=== PATIENT | female | born 1980 | race Two or more races ===

== ENCOUNTER 2024-01-15 05:22 | Day surgery (SDC) | payer OTHER ==
[2024-01-14 11:48] LABS: HEMATOCRIT 38.5 % (36.0-45.00); MEAN CELL VOLUME 81.8 fL (80.00-100.00); MEAN CORPUSCULAR HEMOGLOBIN 27.7 pg (27.00-32.0); MEAN CORPUSCULAR HGB CONC 33.8 g/dl (32.0-36.0); PLATELET COUNT 298 K/uL (150-450); RED BLOOD COUNT 4.71 M/uL (4.00-6.00)
[2024-01-14 12:12] LABS: INR 0.99; PARTIAL THROMBOPLASTIN TIME 25.6 SECONDS (22.0-34.0); PROTHROMBIN TIME 10.4 SECONDS (9.0-11.5)
[2024-01-14 12:23] LABS: ALBUMIN 3.5 gm/dL (3.4-5.0); BILIRUBIN TOTAL 0.24 mg/dL (0.3-1.2); CALCIUM 9.9 mg/dL (8.5-10.1); CREATININE SERUM 0.64 mg/dL (0.55-1.02); GFR 101.76; GLOBULINA 3.6 G/DL (2.4-3.5); POTASSIUM 4.09 mEq/L (3.5-5.1); TOTAL PROTEIN 7.1 gm/dL (6.4-8.2)
[2024-01-15] MEDS ORDERED: POVIDONE-IODINE 118 ML BOTT TOP ONE (06:48)
== END 2024-01-15 12:50 | disposition home or self-care (01) ==
LOC: CIR.AMB 05:22
PROVIDERS: ATTEND Obstetrics & Gynecology Maternal & Fetal Medicine
DX: O34.32 Maternal care for cervical incompetence, second trimester (principal); Z3A.14 14 weeks gestation of pregnancy; I10 Essential (primary) hypertension

== ENCOUNTER 2024-04-03 12:23 | Outpatient (CLI) | payer OTHER | END 2024-04-03 13:26 | disposition home or self-care (01) | LOC: NST 12:23 | PROVIDERS: ATTEND Obstetrics & Gynecology | DX: Z34.82 Encounter for supervision of other normal pregnancy, second trimester (principal) ==

== ENCOUNTER 2024-04-06 13:02 | Inpatient (IN) | payer OTHER ==
[~2024-04-06] VITALS: Ht 152.4 cm; Wt 80.7 kg
[2024-04-06] MEDS ORDERED: RINGERS SOLUTION,LACTATED 1,000 ML IV SCH (13:30)
[2024-04-06] MEDS ORDERED: BETAMETHASONE ACETATE,SOD PHOS 30 MG/5 ML ML IM SCH (13:30)
[2024-04-06] MEDS ORDERED: MAGNESIUM SULFATE IN WATER 500 ML IV SCH (13:30)
[2024-04-06] MEDS ORDERED: MAGNESIUM SULFATE IN WATER 50 ML IV ONE (13:30)
[2024-04-06] MEDS ORDERED: BETAMETHASONE ACETATE,SOD PHOS 30 MG/5 ML ML ONE (13:35)
[2024-04-06] MEDS ORDERED: MAGNESIUM SULFATE IN WATER 0.04 GM/ML IV.SOLN IV ONE (13:35)
[2024-04-06 13:46] VITALS: BP 110/74
[2024-04-06 14:58] LABS: HEMATOCRIT 33.7 % (36.0-45.00); HEMOGLOBIN 11.3 g/dL (12.0-15.00); MEAN CELL VOLUME 82.4 fL (80.00-100.00); MEAN CORPUSCULAR HEMOGLOBIN 27.6 pg (27.00-32.0); MEAN CORPUSCULAR HGB CONC 33.5 g/dl (32.0-36.0); PLATELET COUNT 297 K/uL (150-450); RED BLOOD COUNT 4.09 M/uL (4.00-6.00); RED CELL DISTRIBUTION WIDTH 14.2 % (11.5-14.5)
[2024-04-06 15:07] LABS: PROTHROMBIN TIME 10.9 SECONDS (9.0-11.5)
[2024-04-06 15:26] LABS: ALBUMIN 2.9 gm/dL (3.4-5.0); BILIRUBIN TOTAL 0.25 mg/dL (0.3-1.2); CALCIUM 9.3 mg/dL (8.5-10.1); CREATININE SERUM 0.64 mg/dL (0.55-1.02); GFR 101.76; GLOBULINA 3.5 G/DL (2.4-3.5); POTASSIUM 3.92 mEq/L (3.5-5.1); TOTAL PROTEIN 6.4 gm/dL (6.4-8.2)
[2024-04-06 16:19] VITALS: BP 128/80
[2024-04-06 19:44] VITALS: BP 123/74
[2024-04-06 23:39] VITALS: BP 119/73
[2024-04-07 03:10] VITALS: BP 117/70
[2024-04-07 06:33] VITALS: BP 126/71; O2SAT 97
[2024-04-07] MEDS ORDERED: AZITHROMYCIN 500 MG TABLET PO SCH (09:00)
[2024-04-07 12:21] VITALS: BP 121/73; O2SAT 97
[2024-04-07] MEDS ORDERED: BETAMETHASONE ACETATE,SOD PHOS 30 MG/5 ML ML ONE (14:29)
[2024-04-07 15:17] VITALS: BP 117/71
[2024-04-07 19:00] VITALS: BP 119/74
[2024-04-07 23:58] VITALS: BP 126/74
[2024-04-08 03:35] VITALS: BP 122/73
[2024-04-08 06:54] VITALS: BP 126/76; O2SAT 97
[2024-04-08] MEDS ORDERED: NIFEDIPINE 30 MG TAB.SA.OSM PO SCH (09:00)
[2024-04-08 11:38] VITALS: BP 118/72; O2SAT 96
[2024-04-08 14:18] VITALS: BP 121/57
[2024-04-08 17:59] VITALS: BP 109/69
[2024-04-09 02:16] VITALS: BP 114/70
[2024-04-09 09:00] VITALS: BP 118/74
[2024-04-09 16:00] VITALS: BP 117/71
[2024-04-10] VITALS: BP 104/64
[2024-04-10 09:00] VITALS: BP 106/67
[2024-04-10 17:30] VITALS: BP 135/73
[2024-04-10 23:52] VITALS: BP 106/69
[2024-04-11 09:15] VITALS: BP 129/80
[2024-04-11 16:00] VITALS: BP 131/80
[2024-04-12 00:19] VITALS: BP 110/72
[2024-04-12 08:05] VITALS: BP 119/76
[2024-04-12 15:57] VITALS: BP 123/80
[2024-04-12 23:31] VITALS: BP 110/71
[2024-04-13 08:11] VITALS: BP 120/72
[2024-04-13 16:00] VITALS: BP 122/79
[2024-04-13 23:43] VITALS: BP 109/73
[2024-04-14 08:05] VITALS: BP 116/76
[2024-04-14 15:55] VITALS: BP 125/79
[2024-04-15 01:25] VITALS: BP 112/76
[2024-04-15 10:11] VITALS: BP 127/81; O2SAT 98
[2024-04-15 16:15] VITALS: BP 123/80
[2024-04-16 01:14] VITALS: BP 116/77
[2024-04-16 08:00] VITALS: BP 117/79
[2024-04-16] MEDS ORDERED: POLYETHYLENE GLYCOL 3350 17 GM BLIST.PACK PO SCH (09:00)
[2024-04-16] MEDS ORDERED: DOCUSATE SODIUM 100MG CAP PO SCH (09:00)
[2024-04-16] MEDS ORDERED: ENOXAPARIN SODIUM 40 MG/0.4 ML SYRINGE SUBCUTANEO NR (11:43)
[2024-04-16 16:00] VITALS: BP 129/84
[2024-04-17 01:44] VITALS: BP 116/75
[2024-04-17 08:00] VITALS: BP 124/80
[2024-04-17] MEDS ORDERED: ENOXAPARIN SODIUM 40 MG/0.4 ML SYRINGE SUBCUTANEO SCH (09:00)
[2024-04-17 09:50] LABS: HEMATOCRIT 32.7 % (36.0-45.00); MEAN CELL VOLUME 81.2 fL (80.00-100.00); MEAN CORPUSCULAR HEMOGLOBIN 27.3 pg (27.00-32.0); MEAN CORPUSCULAR HGB CONC 33.6 g/dl (32.0-36.0); PLATELET COUNT 296 K/uL (150-450); RED BLOOD COUNT 4.03 M/uL (4.00-6.00); RED CELL DISTRIBUTION WIDTH 14.2 % (11.5-14.5)
[2024-04-17 16:20] VITALS: BP 115/77
[2024-04-18 00:38] VITALS: BP 119/78
[2024-04-18 08:00] VITALS: BP 125/78
[2024-04-18] MEDS ORDERED: MINERAL OIL 30 ML BLIST.PACK PO NR ×2 (10:39→19:15)
[2024-04-18] MEDS ORDERED: MAGNESIUM HYDROXIDE 30 ML BLIST.PACK PO NR ×2 (10:39→19:15)
[2024-04-18 10:47] VITALS: BP 111/76
[2024-04-18 15:05] VITALS: BP 116/79
[2024-04-18 19:24] VITALS: BP 132/87
[2024-04-19] VITALS: BP 127/83
[2024-04-19 08:00] VITALS: BP 129/81
[2024-04-19 15:01] VITALS: BP 122/79
[2024-04-19 20:00] VITALS: BP 137/86
[2024-04-20] VITALS: BP 116/72
[2024-04-20 08:24] VITALS: BP 126/81
[2024-04-20] MEDS ORDERED: POLYETHYLENE GLYCOL 3350 17 GM BLIST.PACK PO SCH (09:00)
[2024-04-20 16:28] VITALS: BP 117/79
[2024-04-21 00:36] VITALS: BP 116/76
[2024-04-21 08:15] VITALS: BP 120/80
[2024-04-21 16:15] VITALS: BP 108/72
[2024-04-22 00:40] VITALS: BP 115/76
[2024-04-22 08:39] VITALS: BP 119/79
[2024-04-22 16:00] VITALS: BP 134/80
[2024-04-22] MEDS ORDERED: DOCUSATE CALCIUM 240 MG CAPSULE PO SCH (17:00)
[2024-04-23 00:29] VITALS: BP 112/72
[2024-04-23 08:00] VITALS: BP 129/87
[2024-04-23 18:00] VITALS: BP 136/85
[2024-04-24 01:14] VITALS: BP 113/73
[2024-04-24 07:54] VITALS: BP 114/75
[2024-04-24 17:14] VITALS: BP 112/72
[2024-04-24 17:15] VITALS: BP 127/85
[2024-04-25] VITALS: BP 124/80
[2024-04-25 08:19] VITALS: BP 124/83
[2024-04-25 16:00] VITALS: BP 123/83
[2024-04-26 01:21] VITALS: BP 110/70
[2024-04-26 09:00] VITALS: BP 133/86
[2024-04-26 14:00] VITALS: BP 120/82
[2024-04-26 16:00] VITALS: BP 117/81
[2024-04-27 00:49] VITALS: BP 112/73
[2024-04-27 08:07] VITALS: BP 120/84
[2024-04-27 17:36] VITALS: BP 126/87
[2024-04-28] VITALS: BP 129/82
[2024-04-28 08:47] VITALS: BP 127/85
[2024-04-28 16:00] VITALS: BP 120/68
[2024-04-29 01:58] VITALS: BP 118/82
[2024-04-29 08:58] VITALS: BP 122/84
[2024-04-29 16:00] VITALS: BP 130/80
[2024-04-30 02:42] VITALS: BP 113/74
[2024-04-30 09:01] VITALS: BP 127/76
[2024-04-30 17:08] VITALS: BP 127/80
[2024-05-01 00:21] VITALS: BP 112/70
[2024-05-01] MEDS ORDERED: DIPHTH,PERTUSS(ACELL),TET VAC 0.5 ML VIAL IM NR (09:00)
[2024-05-01 10:40] VITALS: BP 139/83
[2024-05-01 16:00] VITALS: BP 116/74
[2024-05-02] VITALS: BP 107/71
[2024-05-02 08:16] VITALS: BP 116/75
[2024-05-02 15:48] VITALS: BP 119/78
[2024-05-02] MEDS ORDERED: NIFEDIPINE 60 MG TAB.SA.OSM PO SCH (21:00)
[2024-05-03] VITALS: BP 116/76
[2024-05-03 09:24] VITALS: BP 128/83
[2024-05-03 15:53] VITALS: BP 116/76
[2024-05-04 01:00] VITALS: BP 117/76
[2024-05-04 10:09] VITALS: BP 138/80
[2024-05-04 16:00] VITALS: BP 113/68
[2024-05-05] VITALS: BP 109/71
[2024-05-05 07:45] VITALS: BP 119/81
[2024-05-05 18:18] VITALS: BP 115/78
[2024-05-06 00:46] VITALS: BP 131/80
[2024-05-06 08:48] VITALS: BP 139/89
[2024-05-06 16:08] VITALS: BP 118/79
[2024-05-07 02:07] VITALS: BP 123/79
[2024-05-07 08:00] VITALS: BP 118/79
== END 2024-05-07 13:23 | disposition home or self-care (01) | DRG 831 ==
LOC: LDR 13:02 → OB/GYN 13:02
PROVIDERS: Obstetrics & Gynecology Gynecology; ADMIT Obstetrics & Gynecology; ATTEND Obstetrics & Gynecology
PROC: 4A1HXCZ Monitoring of Products of Conception, Cardiac Rate, External Approach (ICD-10-PCS; principal; 2024-04-06)
PROC: BY4CZZZ Ultrasonography of Second Trimester, Single Fetus (ICD-10-PCS; 2024-04-16)
PROC: BU4CZZZ Ultrasonography of Uterus and Ovaries (ICD-10-PCS; 2024-04-16)
PROC: BY4CZZZ Ultrasonography of Second Trimester, Single Fetus (ICD-10-PCS; 2024-04-23)
PROC: BY47ZZZ Ultrasonography of Fetal Umbilical Cord (ICD-10-PCS; 2024-04-23)
PROC: BY4FZZZ Ultrasonography of Third Trimester, Single Fetus (ICD-10-PCS; 2024-04-30)
PROC: BU4CZZZ Ultrasonography of Uterus and Ovaries (ICD-10-PCS; 2024-04-30)
PROC: BY47ZZZ Ultrasonography of Fetal Umbilical Cord (ICD-10-PCS; 2024-04-30)
PROC: BY47ZZZ Ultrasonography of Fetal Umbilical Cord (ICD-10-PCS; 2024-05-07)
PROC: BY4FZZZ Ultrasonography of Third Trimester, Single Fetus (ICD-10-PCS; 2024-05-07)
DX: O34.32 Maternal care for cervical incompetence, second trimester (principal); O60.02 Preterm labor without delivery, second trimester; O60.03 Preterm labor without delivery, third trimester; O36.8120 Decreased fetal movements, second trimester, not applicable or unspecified; O26.842 Uterine size-date discrepancy, second trimester; O36.5920 Maternal care for other known or suspected poor fetal growth, second trimester, not applicable or unspecified; Z3A.24 24 weeks gestation of pregnancy; Z20.822 Contact with and (suspected) exposure to COVID-19; O26.843 Uterine size-date discrepancy, third trimester; Z3A.28 28 weeks gestation of pregnancy; O36.8130 Decreased fetal movements, third trimester, not applicable or unspecified

== ENCOUNTER 2024-05-20 09:39 | Outpatient (CLI) | payer OTHER | END 2024-05-20 11:19 | disposition home or self-care (01) | LOC: NST 09:39 | PROVIDERS: ATTEND Obstetrics & Gynecology Maternal & Fetal Medicine | DX: Z34.83 Encounter for supervision of other normal pregnancy, third trimester (principal) ==

== ENCOUNTER → 2024-06-03 | Outpatient (CLI) | payer OTHER | END | disposition home or self-care (01) | LOC: NST 14:54 | PROVIDERS: ATTEND Obstetrics & Gynecology | DX: Z34.83 Encounter for supervision of other normal pregnancy, third trimester (principal) ==

== ENCOUNTER 2024-06-10 14:45 | Inpatient (IN) | payer OTHER ==
[~2024-06-10] VITALS: Ht 152.4 cm; Wt 83.0 kg
[2024-06-10 15:10] VITALS: BP 143/87
[2024-06-10 17:28] LABS: HEMATOCRIT 33.6 % (36.0-45.00); HEMOGLOBIN 11.3 g/dL (12.0-15.00); MEAN CELL VOLUME 78.7 fL (80.00-100.00); MEAN CORPUSCULAR HEMOGLOBIN 26.6 pg (27.00-32.0); MEAN CORPUSCULAR HGB CONC 33.7 g/dl (32.0-36.0); PLATELET COUNT 302 K/uL (150-450); RED BLOOD COUNT 4.27 M/uL (4.00-6.00); RED CELL DISTRIBUTION WIDTH 14.8 % (11.5-14.5)
[2024-06-10 17:30] LABS: PH,URINE 5.5 (5.0-8.0); URINE APPEARANCE Cloudy; URINE BILIRRUBIN Negative (NEGATIVE); URINE BLOOD Negative; URINE COLOR Yellow; URINE GLUCOSE Negative (NEGATIVE); URINE KETONE 15 (NEGATIVE); URINE LEUKOCYTE Moderate; URINE NITRATE Negative; URINE PROTEIN 30 (NEGATIVE)
[2024-06-10 17:33] LABS: URINE BACTERIA 2742.9 uL (0.0-1933); URINE CAST 1.98 uL (0.0-1.40); URINE EPITHELIAL CELLS 98.9 uL (0.0-38.8); URINE RBC 2.9 uL (0.0-20.8); URINE WBC 191.8 uL (0.0-23.2)
[2024-06-10] MEDS ORDERED: LABETALOL HCL 200 MG TABLET PO SCH (17:42)
[2024-06-10] MEDS ORDERED: MAGNESIUM SULFATE IN WATER 500 ML IV SCH (17:45)
[2024-06-10] MEDS ORDERED: RINGERS SOLUTION,LACTATED 1,000 ML IV SCH (17:45)
[2024-06-10] MEDS ORDERED: BETAMETHASONE ACETATE,SOD PHOS 30 MG/5 ML ML IM ONE (17:45)
[2024-06-10 17:53] LABS: INR 0.94; PARTIAL THROMBOPLASTIN TIME 23.1 SECONDS (22.0-34.0); PROTHROMBIN TIME 10.3 SECONDS (9.0-11.5)
[2024-06-10 18:01] LABS: ALBUMIN 2.8 gm/dL (3.4-5.0); BILIRUBIN TOTAL 0.15 mg/dL (0.3-1.2); CALCIUM 9.8 mg/dL (8.5-10.1); CREATININE SERUM 0.78 mg/dL (0.55-1.02); GFR 80.61; GLOBULINA 3.5 G/DL (2.4-3.5); POTASSIUM 4.44 mEq/L (3.5-5.1); TOTAL PROTEIN 6.3 gm/dL (6.4-8.2)
[2024-06-10] MEDS ORDERED: PRENATAL TABLE1 EAC1 PO (18:26)
[2024-06-10] MEDS ORDERED: LABETALOL HCL200 MG PO (18:26)
[2024-06-10] MEDS ORDERED: NIFEDIPINE20 MG PO (18:26)
[2024-06-10 20:30] VITALS: BP 136/86
[2024-06-10 23:37] VITALS: BP 130/81
[2024-06-11 04:25] VITALS: BP 132/81
[2024-06-11 07:18] VITALS: BP 98/61
[2024-06-11 12:00] VITALS: BP 115/72
[2024-06-11 14:35] VITALS: BP 119/83
[2024-06-11 16:36] VITALS: BP 133/83
[2024-06-12 01:09] VITALS: BP 129/76
[2024-06-12] MEDS ORDERED: LABETALOL HCL200 MG PO (07:30)
[2024-06-12 08:46] VITALS: BP 130/78
== END 2024-06-12 10:05 | disposition home or self-care (01) | DRG 833 ==
LOC: LDR 14:45 → OB/GYN 14:45
PROVIDERS: ADMIT Obstetrics & Gynecology Maternal & Fetal Medicine; ATTEND Obstetrics & Gynecology Maternal & Fetal Medicine
PROC: 4A1HXCZ Monitoring of Products of Conception, Cardiac Rate, External Approach (ICD-10-PCS; principal; 2024-06-10)
DX: O10.913 Unspecified pre-existing hypertension complicating pregnancy, third trimester (principal); Z3A.34 34 weeks gestation of pregnancy; Z20.822 Contact with and (suspected) exposure to COVID-19

== ENCOUNTER 2024-06-16 09:32 | Outpatient (CLI) | payer OTHER ==
[~2024-06-16 09:32] MED LIST: LABETALOL HCL200 MG PO; NIFEDIPINE20 MG PO; PRENATAL TABLE1 EAC1 PO
== END 2024-06-16 10:55 | disposition home or self-care (01) ==
LOC: NST 09:32
PROVIDERS: ATTEND Obstetrics & Gynecology Maternal & Fetal Medicine
DX: Z34.83 Encounter for supervision of other normal pregnancy, third trimester (principal)

== ENCOUNTER 2024-06-24 12:09 | Outpatient (CLI) | payer OTHER | END 2024-06-24 12:20 | disposition home or self-care (01) | LOC: NST 12:09 | PROVIDERS: ATTEND Obstetrics & Gynecology Maternal & Fetal Medicine | DX: Z34.83 Encounter for supervision of other normal pregnancy, third trimester (principal) ==

== ENCOUNTER 2024-06-25 07:23 | Outpatient (CLI) | payer OTHER | END 2024-06-25 08:16 | disposition home or self-care (01) | LOC: NST 07:23 | PROVIDERS: ATTEND Obstetrics & Gynecology Maternal & Fetal Medicine | DX: Z34.83 Encounter for supervision of other normal pregnancy, third trimester (principal) ==

== ENCOUNTER 2024-07-01 10:23 | Outpatient (CLI) | payer OTHER | END 2024-07-01 12:05 | disposition home or self-care (01) | LOC: NST 10:23 | PROVIDERS: ATTEND Obstetrics & Gynecology Maternal & Fetal Medicine | DX: Z34.83 Encounter for supervision of other normal pregnancy, third trimester (principal) ==

== ENCOUNTER 2024-07-06 09:21 | Outpatient (CLI) | payer OTHER ==
[2024-07-06] MEDS ORDERED: LABETALOL HCL100 MG PO (13:52)
== END 2024-07-06 10:00 | disposition home or self-care (01) ==
LOC: NST 09:21
PROVIDERS: ATTEND Obstetrics & Gynecology Maternal & Fetal Medicine
DX: Z34.83 Encounter for supervision of other normal pregnancy, third trimester (principal)

== ENCOUNTER 2024-07-06 13:07 | Inpatient (IN) | payer OTHER ==
[~2024-07-06] VITALS: Ht 152.4 cm; Wt 2.3 kg
[2024-07-06 13:30] VITALS: BP 148/82
[2024-07-06] MEDS ORDERED: LABETALOL HCL100 MG PO (13:52)
[2024-07-06 14:31] LABS: HEMATOCRIT 35.7 % (36.0-45.00); HEMOGLOBIN 11.7 g/dL (12.0-15.00); MEAN CELL VOLUME 79.4 fL (80.00-100.00); MEAN CORPUSCULAR HEMOGLOBIN 26.1 pg (27.00-32.0); MEAN CORPUSCULAR HGB CONC 32.9 g/dl (32.0-36.0); PLATELET COUNT 278 K/uL (150-450); RED BLOOD COUNT 4.49 M/uL (4.00-6.00); RED CELL DISTRIBUTION WIDTH 15.4 % (11.5-14.5)
[2024-07-06 15:29] LABS: ALBUMIN 2.7 gm/dL (3.4-5.0); BILIRUBIN TOTAL 0.2 mg/dL (0.3-1.2); CALCIUM 9.8 mg/dL (8.5-10.1); CREATININE SERUM 0.86 mg/dL (0.55-1.02); GFR 72.02; GLOBULINA 3.6 G/DL (2.4-3.5); POTASSIUM 4.28 mEq/L (3.5-5.1); TOTAL PROTEIN 6.3 gm/dL (6.4-8.2)
[2024-07-06] MEDS ORDERED: AMPICILLIN SODIUM 2,000 MG VIAL IV ONE (15:30)
[2024-07-06] MEDS ORDERED: AMPICILLIN SODIUM 1,000 MG VIAL IV SCH (16:00)
[2024-07-06 16:05] VITALS: BP 152/79
[2024-07-06 17:19] LABS: INR 0.95; PARTIAL THROMBOPLASTIN TIME 25.2 SECONDS (22.0-34.0); PROTHROMBIN TIME 10.4 SECONDS (9.0-11.5)
[2024-07-06 18:39] VITALS: BP 162/78
[2024-07-07 02:46] VITALS: BP 133/65
[2024-07-07] MEDS ORDERED: OXYTOCIN 20 UNITS/500ML RL PIGGYBAG IV SCH (07:30)
[2024-07-07 07:36] VITALS: BP 167/88
[2024-07-07] MEDS ORDERED: LABETALOL HCL 200 MG TABLET PO SCH (09:00)
[2024-07-07] MEDS ORDERED: AMPICILLIN SODIUM 1,000 MG VIAL IV SCH (09:00)
[2024-07-07 11:07] VITALS: BP 139/73
[2024-07-07 15:56] VITALS: BP 107/83
[2024-07-07] MEDS ORDERED: CEFAZOLIN SODIUM 1,000 MG VIAL IV SCH (17:30)
[2024-07-07] MEDS ORDERED: ERYTHROMYCIN BASE OPHT 1GM EACH TUBE OP ONE (17:45)
[2024-07-07] MEDS ORDERED: OXYTOCIN 10 UNITS/ML VIAL IV ONE (17:45)
[2024-07-07] MEDS ORDERED: KETOROLAC TROMETHAMINE 30 MG VIAL IV SCH (18:18)
[2024-07-07] MEDS ORDERED: RINGERS SOLUTION,LACTATED 1,000 ML IV SCH (18:30)
[2024-07-07] MEDS ORDERED: MORPHINE SULFATE 4 MG/ML CARTRIDGE IV PRN (18:30)
[2024-07-07] MEDS ORDERED: OXYTOCIN 1,000 ML IV ONE (18:30)
[2024-07-07 22:14] VITALS: BP 150/70
[2024-07-08] MEDS ORDERED: ONDANSETRON HCL 2 MG/ML VIAL IV SCH
[2024-07-08] MEDS ORDERED: ACETAMINOPHEN 500 MG GEL..CAP PO SCH
[2024-07-08] MEDS ORDERED: GABAPENTIN 300 MG CAPSULE PO SCH (01:00)
[2024-07-08 01:11] VITALS: BP 133/69
[2024-07-08 06:49] LABS: HEMATOCRIT 30.4 % (36.0-45.00); HEMOGLOBIN 10.2 g/dL (12.0-15.00); MEAN CELL VOLUME 78.7 fL (80.00-100.00); MEAN CORPUSCULAR HEMOGLOBIN 26.4 pg (27.00-32.0); MEAN CORPUSCULAR HGB CONC 33.6 g/dl (32.0-36.0); PLATELET COUNT 232 K/uL (150-450); RED BLOOD COUNT 3.87 M/uL (4.00-6.00); RED CELL DISTRIBUTION WIDTH 15.4 % (11.5-14.5)
[2024-07-08] MEDS ORDERED: KETOROLAC TROMETHAMINE 10 MG TABLET PO SCH (08:00)
[2024-07-08] MEDS ORDERED: OxyCODONE HCL 5 MG TABLET (ROXICODONE) PO PRN (08:00)
[2024-07-08 08:18] VITALS: BP 130/80
[2024-07-08] MEDS ORDERED: DOCUSATE SODIUM 100MG CAP PO SCH (09:00)
[2024-07-08] MEDS ORDERED: NIFEDIPINE 30 MG TAB.SA.OSM PO SCH (09:00)
[2024-07-08 18:20] VITALS: BP 122/77
[2024-07-09 00:38] VITALS: BP 114/69
[2024-07-09 11:00] VITALS: BP 126/79
[2024-07-09 16:04] VITALS: BP 120/72
[2024-07-10 01:09] VITALS: BP 119/75
[2024-07-10] MEDS ORDERED: KETO10TA2 PO (07:41)
[2024-07-10] MEDS ORDERED: PERCOCET 5-3251 EACH PO (07:42)
[2024-07-10 08:00] VITALS: BP 138/80
== END 2024-07-10 12:06 | disposition home or self-care (01) | DRG 788 ==
LOC: LDR 13:07 → O/R 07-07 18:48 → OB/GYN 07-07 19:21
PROVIDERS: Obstetrics & Gynecology; ADMIT Obstetrics & Gynecology Maternal & Fetal Medicine; ATTEND Obstetrics & Gynecology Maternal & Fetal Medicine
PROC: 4A1HXCZ Monitoring of Products of Conception, Cardiac Rate, External Approach (ICD-10-PCS; 2024-07-06)
PROC: 10D00Z1 Extraction of Products of Conception, Low, Open Approach (ICD-10-PCS; principal; 2024-07-07 18:15)
DX: O10.02 Pre-existing essential hypertension complicating childbirth (principal); O36.8130 Decreased fetal movements, third trimester, not applicable or unspecified; Z3A.38 38 weeks gestation of pregnancy; Z37.0 Single live birth; Z20.822 Contact with and (suspected) exposure to COVID-19